=== PATIENT | female | born 1960 | race Caucasian/White ===

== ENCOUNTER → 2017-12-31 | Outpatient (CLI) | payer OTHER ==
[~2017-12-31] MED LIST: CARB50; CELE200; CYCL10; ESTMET; GABA300; GUAPHELA; LORA10ER; OXYACE5T PO; POLY500; TOCO400; VITB100
== END | disposition home or self-care (01) ==
LOC: LAB 15:45 → LAB SHORT 15:45
DX: M79.641 Pain in right hand (principal)
CPT/HCPCS: 87070; 87075; 87077; 87147; 87186; 87205

== ENCOUNTER 2018-01-22 14:24 | Day surgery (SDC) | payer OTHER ==
[~2018-01-22] VITALS: Ht 157.5 cm; Wt 73.5 kg
[2018-01-22] MEDS ORDERED: ATOR20 PO (14:53)
[2018-01-22] MEDS ORDERED: SITA50T2 PO (14:53)
[2018-01-22] MEDS ORDERED: HYDCHL25 PO (14:53)
[2018-01-22] MEDS ORDERED: SERT50 PO (14:54)
[2018-01-22] MEDS ORDERED: POTCHL10ER PO (14:54)
[2018-01-22] MEDS ORDERED: METF500C PO (14:54)
[2018-01-22] MEDS ORDERED: INSULANPEN (14:54)
== END 2018-01-22 17:05 | disposition home or self-care (01) ==
LOC: ORSCSDS 14:24
PROVIDERS: Orthopaedic Surgery
PROC: 0J9J0ZZ Drainage of Right Hand Subcutaneous Tissue and Fascia, Open Approach (ICD-10-PCS; principal; 2018-01-22 16:15)
DX: L03.011 Cellulitis of right finger (principal); I10 Essential (primary) hypertension; K21.9 Gastro-esophageal reflux disease without esophagitis; E11.9 Type 2 diabetes mellitus without complications; Z79.4 Long term (current) use of insulin; Z79.899 Other long term (current) drug therapy
CPT/HCPCS: 82947; J2250; J2405; J2795; J3010; J7120

== ENCOUNTER → 2019-02-11 | Outpatient (CLI) | payer OTHER ==
[~2019-02-11] MED LIST changes: +ATOR20 PO; +HYDCHL25 PO; +INSULANPEN; +METF500C PO; +POTCHL10ER PO; +SERT50 PO; +SITA50T2 PO
== END ==
LOC: LAB EV 14:35 → LAB SHORT 14:35
DX: N39.0 Urinary tract infection, site not specified (principal)
CPT/HCPCS: 87077; 87086; 87186

== ENCOUNTER → 2019-12-18 | Outpatient (CLI) | payer OTHER | LOC: LAB EV 14:57 → LAB SHORT 14:57 | DX: R30.9 Painful micturition, unspecified (principal) | CPT/HCPCS: 87086 ==

== ENCOUNTER → 2022-09-20 | Outpatient (CLI) | payer OTHER | END | disposition home or self-care (01) | LOC: LAB SHORT 17:10 → LAB 17:10 | DX: N39.0 Urinary tract infection, site not specified (principal) | CPT/HCPCS: 87077; 87086; 87186 ==

== ENCOUNTER → 2022-10-14 | Outpatient (CLI) | payer OTHER ==
[2022-10-14 14:06] LABS: Source, Urine Clean Catch
[2022-10-14 14:07] LABS: BASOPHILS ABSOLUTE AUTO 0.03 K/mm3 (0.00-0.23); BASOPHILS PERCENT AUTO 0 % (0-2); EOSINOPHILS ABSOLUTE AUTO 0.25 K/mm3 (0.00-0.68); EOSINOPHILS PERCENT AUTO 3 % (0-6); Hematocrit 40.9 % (33.0-51.0); Hemoglobin 14.5 g/dL (11.5-16.0); IMMATURE GRAN ABSOLUTE AUTO 0.02 K/mm3 (0.00-0.10); IMMATURE GRAN PERCENT AUTO 0 % (0-1); LYMPHOCYTES ABSOLUTE AUTO 1.77 K/mm3 (0.84-5.20); LYMPHOCYTES PERCENT AUTO 20 % (21-46); MONOCYTES PERCENT AUTO 7 % (4-13); Mean Corpuscular HGB 30.9 pg (26.0-34.0); Mean Corpuscular HGB Conc 35.5 g/dL (31.5-36.5); Mean Corpuscular Volume 87 fL (80-100); Mean Platelet Volume 9.3 fL (9.1-12.4); NEUTROPHILS ABSOLUTE AUTO 6.16 K/mm3 (1.96-9.15); NEUTROPHILS PERCENT AUTO 70 % (41-73); Platelet Count 231 K/mm3 (150-400); RDW Coefficient Variation 12.9 % (11.7-14.2); RDW Standard Deviation 40.9 fL (35.1-46.3); White Blood Cell Count 8.83 K/mm3 (4.00-11.30)
[2022-10-14 14:20] LABS: Red Blood Cells, Urine Not Seen /hpf (0-2); Squamous Epithelial Cells Few /hpf (Few)
[2022-10-14 14:21] LABS: Bacteria Few /hpf
[2022-10-14 14:27] LABS: Albumin, Blood 3.7 g/dL (3.4-5.0); Albumin/Globulin Ratio 1.2 (0.8-1.8); Bilirubin, Total 0.5 mg/dL (0.1-1.0); Bun/Creatinine Ratio 33.3 (12.0-20.0); Calcium, Blood 9.2 mg/dL (8.5-10.1); Creatinine, Blood 0.63 mg/dL (0.40-1.00); Free Thyroxine 0.88 ng/dL (0.70-1.60); Globulin, Blood 3.1 g/dL (2.2-4.0); Potassium, Blood 3.8 mmol/L (3.5-5.5); Thyroid Stimulating Hormone 0.83 uIU/mL (0.360-4.800); Total Protein, Blood 6.8 g/dL (6.4-8.2)
== END | disposition home or self-care (01) ==
LOC: LAB SHORT 14:02 → LAB 14:02
PROVIDERS: Emergency Medicine
DX: Z09 Encounter for follow-up examination after completed treatment for conditions other than malignant neoplasm (principal); Z87.442 Personal history of urinary calculi
CPT/HCPCS: 80053; 81015; 83690; 84439; 84443; 85025

== ENCOUNTER → 2023-03-09 | Outpatient (CLI) | payer OTHER ==
[~2023-03-09] MED LIST changes: +CALCIUM CARB/VIT D3 PO; +CEPH500 PO; +DHA FROM ALGAE200 MG PO; +ESCI20 PO; +FLUT.05NI; +OMEP20ER PO; +POTCIT10 PO; +PSEU120ER PO; +TAMS.4ER PO; +TRADJENTA5 MG PO; +ZYRTEC10 M2 PO
== END ==
LOC: LAB 17:32 → LAB SHORT 17:32
DX: N39.0 Urinary tract infection, site not specified (principal)
CPT/HCPCS: 87077; 87086; 87186

== ENCOUNTER → 2023-10-18 | Outpatient (CLI) | payer OTHER | END | disposition home or self-care (01) | LOC: LAB 18:56 → LAB SHORT 18:56 | DX: N39.0 Urinary tract infection, site not specified (principal) | CPT/HCPCS: 87077; 87086; 87186 ==

== ENCOUNTER → 2024-01-23 | Outpatient (CLI) | payer OTHER ==
[2024-01-23 12:12] LABS: Source, Urine Clean Catch
[2024-01-23 13:24] LABS: Appearance, Urine Hazy (Clear); Bilirubin, Urine Neg (Neg); Blood, Urine Neg (Neg); Color, Urine Yellow (P-Yellow); Glucose Qualitative, Urine Neg (Neg); Ketones, Urine Neg (Neg); Leukocyte Esterase, Urine 2+ (Neg); Nitrite, Urine Neg (Neg); Protein, Urine 2+ (Neg); Urobilinogen, Urine NORM (Normal)
[2024-01-23 13:48] LABS: Bacteria Many /hpf; Red Blood Cells, Urine 0-2 /hpf (0-2); Squamous Epithelial Cells Mod /hpf (Few); White Blood Cells, Urine 25-50 /hpf (0-5)
== END ==
LOC: LAB SHORT 12:09 → LAB 12:09
PROVIDERS: Family Medicine
DX: N39.0 Urinary tract infection, site not specified (principal)
CPT/HCPCS: 81001; 87077; 87086; 87186

== ENCOUNTER → 2024-02-27 | Outpatient (CLI) | payer OTHER | END | disposition home or self-care (01) | LOC: LAB 18:08 → LAB SHORT 18:08 | DX: R82.90 Unspecified abnormal findings in urine (principal) | CPT/HCPCS: 87077; 87086; 87186 ==

== ENCOUNTER → 2024-03-06 | Outpatient (CLI) | payer OTHER ==
[2024-03-06 19:31] LABS: Source, Urine Clean Catch
[2024-03-06 19:54] LABS: Bacteria Mod /hpf; Red Blood Cells, Urine 0-2 /hpf (0-2); Squamous Epithelial Cells Few /hpf (Few)
[2024-03-06 19:56] LABS: Transitional Epithelial Cells Rare /hpf (0-Rare)
== END | disposition home or self-care (01) ==
LOC: LAB SHORT 19:29 → LAB 19:29
PROVIDERS: Family Medicine
DX: N39.0 Urinary tract infection, site not specified (principal)
CPT/HCPCS: 81015; 87086

== ENCOUNTER 2024-04-21 10:02 | Day surgery (SDC) | payer OTHER ==
[~2024-04-21] VITALS: Ht 157.5 cm; Wt 83.0 kg
[2024-04-21] VITALS (20 sets, daily range): BP systolic 111–149; BP diastolic 67–116
[~2024-04-21 10:02] MED LIST changes: +GABA400 PO; +INSULANI SC; +Lactated Ringer's 1,000 ML IV SCH; +Vitamin D1000 UNI1 PO
[2024-04-21] MEDS ORDERED: [UNRECOGNIZED DRUG - OTHER] PO (10:30)
[2024-04-21] MEDS ORDERED: PSEU120ER PO (10:30)
[2024-04-21] MEDS ORDERED: GLUCHON PO (10:30)
[2024-04-21] MEDS ORDERED: Iron Chews15 MG PO (10:31)
[2024-04-21] MEDS ORDERED: propofoL 40 ML IV ONE (11:23)
--- NOTE | 2024-04-21 11:36 | NUR ---
04/21/24 1136 Sav George CONFIRMED AND REVIEWED H&P, MEDCICATIONS, ALLERGIES, MEDICAL HISTORY, RESPIRATORY HISTORY, VITAL SIGNS, 3-LEAD EKG, CONSENTS, AND PHYSICIAN ORDERS. PATIENT CONFIRMS NPO STATUS AND AGREES WITH SCHEDULED PROCEDURE. MONITOR INTACT WITH CONTINUOUS PULSE OXIMETRY, CAPNOGRAPHY, 3-LEAD EKG, INTERMITTENT BP. SUPPLEMENTAL O2 TO BE TITRATED THROUGHOUT PROCEDURE TO MAINTAIN O2 SATURATION ABOVE 90%. PATIENT DETERMINED TO BE ASA APPROPRIATE FOR PROPOFOL SEDATION PRIOR TO START OF PROCEDURE BY DR. SRIVASTAVA.
--- NOTE | 2024-04-21 12:37 | NUR ---
DISCHARGE NOTE PT A&OX4, BREATING RA, NO COMPLAINTS, TOLERATING PO INTAKE, AT BEDSIDE. Patient up to Ambulate independently. Gait steady. Discharge instructions reviewed with patient. Patient verbalizes understanding. Copy given to patient to take home. PT ABDOMEN SOFT AND NON TENDER. Discharged via wheelchair to private car for ride home.
== END 2024-04-21 12:30 | disposition home or self-care (01) ==
LOC: ORSCMMR 10:02 → ORD 10:30 → ORSCMMR 10:30
PROVIDERS: Internal Medicine Gastroenterology
PROC: 0DBL8ZX Excision of Transverse Colon, Via Natural or Artificial Opening Endoscopic, Diagnostic (ICD-10-PCS; principal; 2024-04-21 10:30)
DX: Z12.11 Encounter for screening for malignant neoplasm of colon (principal); D12.3 Benign neoplasm of transverse colon; E11.9 Type 2 diabetes mellitus without complications; E78.00 Pure hypercholesterolemia, unspecified; F32.A Depression, unspecified; Z79.4 Long term (current) use of insulin; Z79.899 Other long term (current) drug therapy; Z79.84 Long term (current) use of oral hypoglycemic drugs
CPT/HCPCS: 82947; 88305; J2704; J7120

== ENCOUNTER → 2025-03-19 | Outpatient (CLI) | payer OTHER | LOC: LAB 18:16 | DX: B37.31 Acute candidiasis of vulva and vagina (principal) ==

== ENCOUNTER → 2025-04-03 | Outpatient (CLI) | payer OTHER ==
[~2025-04-03] MED LIST changes: +GLUCHON PO; +Iron Chews15 MG PO; -Lactated Ringer's 1,000 ML IV SCH; +[UNRECOGNIZED DRUG - OTHER] PO
== END | disposition home or self-care (01) ==
LOC: LAB SHORT 17:41 → LAB 17:41
DX: N39.0 Urinary tract infection, site not specified (principal)
CPT/HCPCS: 87077; 87086; 87186